=== PATIENT | male | born 1990 | race Caucasian/White ===

== ENCOUNTER 2019-09-30 13:49 | Emergency (ER) | payer SELFPAY ==
[2019-09-30 13:53] VITALS: BP 125/66; PULSE 72; RESP 16; TEMP 36.7; O2SAT 99; BMI 25.0
--- NOTE | 2019-09-30 14:08 | W.ED.SOB ---
Documented by User: CRISS Hawk 10/02/19 09:43 HPI - SOB/Dyspnea General: Chief Complaint: Shortness of Breath/Dyspnea Stated Complaint: SOB/ DARK GREEN DIARRHEA Time Seen by Provider: 09/30/19 13:55 History of Present Illness: HPI Narrative: Patient is a 28-year-old male who comes into the ED with diarrhea. Diarrhea started 4 days ago. He denies any blood in the stool. He has about 4 episodes of diarrhea a day for the past 4 days. When the diarrhea comes on he has abdominal pain and then it is relieved after he has bowel movement. Denies any nausea, vomiting, fever, shortness of breath, current abdominal pain, hematuria and dysuria.. Patient says he has been eating and drinking normally and staying hydrated. Associated symptoms: Deny abdominal pain, chest pain, fever(s), nausea, orthopnea, palpitations or vomiting Review of Systems Const: Denies: fever, chills or fatigue Eyes: Denies: change in vision or eye discomfort ENMT: Denies: throat pain, painful swallowing, nasal discharge or nasal congestion Card: Denies: chest pain, palpitations, edema, swelling of feet/ankles, shortness of breath on exertion or shortness of breath when lying down Resp: Denies: shortness of breath, productive cough or non-productive cough GI: Reports: diarrhea; Denies: abdominal pain, nausea, vomiting, constipation or blood in stool : Denies: flank pain, difficulty urinating, painful urination or blood in urine Musc: Denies: neck pain, back pain or extremity swelling Skin/Breast: Denies: rash or new lesion Neuro: Denies: headache, numbness in extremities or weakness in extremities PFS ED PFSH: Social History Smoking and tobacco status: current every day smoker Physical Exam Narrative: EXAM NARRATIVE: Patient is a 28-year-old male who is sitting comfortably on exam bed when I enter the room. He is showing no signs of acute distress or any acute pain. No signs of respiratory distress. Const: COMMON NORMALS: oriented x3 HENMT: COMMON NORMALS: normocephalic HEAD & SCALP: normocephalic MOUTH: oral and palatal mucosa normal THROAT: posterior oropharynx normal and uvula midline Neck/C-Spine: COMMON NORMALS: supple GENERAL: Yes normal visual inspection Resp: COMMON NORMALS: normal respiratory effort, no retractions, no use of accessory muscles and clear to auscultation bilaterally EFFORT & INSPECTION: Yes able to speak in complete sentences, No respiratory distress and No labored AUSCULTATION: clear to auscultation bilaterally Cardio: COMMON NORMALS: regular rate, regular rhythm, S1 normal heart sound, S2 normal heart sound, no gallops, no clicks, no murmurs and peripheral pulses 2+ throughout RATE: regular rate RHYTHM: regular rhythm HEART SOUNDS: S1 normal and S2 normal PERIPHERAL PULSES: pulses 2+ throughout GI: COMMON NORMALS: normal to inspection, nondistended, normoactive bowel sounds, soft to palpation and no masses PALPATION: Yes soft and Yes tender Details: LLQ (mild) : COMMON NORMALS: Yes no CVA tenderness BLADDER/KIDNEY EXAM: Yes no CVA tenderness Back/Pelvis: COMMON NORMALS: no CVA tenderness Extremity: COMMON NORMALS: normal to inspection and normal capillary refill Neuro: COMMON NORMALS: oriented x3 and moves all extremities Skin: COMMON NORMALS: no rashes or lesions noted GENERAL SKIN EXAM: no rashes or lesions noted and dry skin Course Vital Signs: Vital signs: Vital Signs Temperature 98.0 F 09/30/19 13:53 Pulse Rate 78 09/30/19 16:09 Respiratory Rate 18 09/30/19 16:09 Blood Pressure 118/62 09/30/19 16:09 Pulse Oximetry 99 09/30/19 16:09 MDM - SOB/Dyspnea Lab Data: Attestation: I reviewed the patient's lab results. Labs: Lab Results 09/30/19 09/30/19 Range/Units 14:50 14:50 WBC 6.4 (4.0-10.0) 10^3/ uL RBC 4.30 (4.1-5.3) 10^6/u L Hgb 13.0 (11.7-16.6) g/dL Hct 39.3 L (42.0-52.0) % MCV 91.4 (80-94) fL MCH 30.2 (28.0-34.0) pg MCHC 33.1 (30.0-36.0) g/dL RDW 11.8 L (12.1-15.1) % Plt Count 254 (130-400) 10^3/c mm MPV 10.1 (7.4-10.4) fL Neut % (Auto) 77.2 % Lymph % (Auto) 14.7 % [place] % (Auto) 6.4 % Eos % (Auto) 1.2 % Baso % (Auto) 0.3 % Neut # (Auto) 5.0 (1.8-7.7) 10^3/u L Lymph # (Auto) 0.9 (0.8-4.8) 10^3/u L [place] # (Auto) 0.4 (0.2-0.9) 10^3/u L Eos # (Auto) 0.1 (0.0-0.8) 10^3/u L Baso # (Auto) 0.0 (0.0-0.1) 10^3/u L Nucleated RBC % (a uto) 0 % Nucleated RBCs # 0.0 /100WBC Sodium 140 (136-145) mmol/L Potassium 4.2 (3.5-5.1) mmol/L Chloride 105 (98-107) mmol/L Carbon Dioxide 27 (22-29) mmol/L Anion Gap 12.2 (5-19) BUN 12 (6-20) mg/dL Creatinine 0.7 (0.7-1.2) mg/dL GFR Calculation 133.3 H (90-130) mL/min Glucose 108 (65-115) mg/dL Calculated Osmolal ity 287 (285-295) mOsm/k g Calcium 9.5 (8.5-10.5) mg/dL Total Bilirubin 0.4 (0.15-1.2) mg/dL AST 13 (0-40) U/L ALT 11 (0-41) U/L Alkaline Phosphata se 58 (40-130) IU/L Total Protein 6.5 L (6.6-8.7) g/dL Albumin 4.2 (3.5-5.2) g/dL Globulin 2.3 (1.3-4.6) g/dL Lipase 17 (13-60) U/L Discharge Plan Discharge Patient Disposition: Home, Self-Care Clinical Impression: Gastroenteritis, non-infectious Qualifiers: Noninfectious gastroenteritis type: unspecified Qualified Code(s): K52.9 - Noninfective gastroenteritis and colitis, unspecified Condition: Stable Prescriptions: New dicyclomine 20 mg tablet 20 mg PO TID 7 Days Qty: 21 RF: 0 No Action ibuprofen 200 mg Tablet 200 mg PO Q6H PRN (Reason: Pain) RF: 0 Discharge Orders: Discharge Order (Routine); Ordered 09/30/19 Ordered By: Diego High Discharge Diet: Regular Discharge Activity: Resume usual activity Patient Instructions: Gastroenteritis (ED) Activity Restrictions/Additional Instructions: Follow-up with your PCP in 7 days for reevaluation. Take the dicyclomine as prescribed as needed for any abdominal cramping and diarrhea. Drink plenty of fluids and stay hydrated. You take ibuprofen or Tylenol for any pain or fevers. Discharge Date/Time: 09/30/19 16:23 Coding Level of Care Code ED [employer] Operator for [employer] Fwd Exam Comprehensive Documented by User: Caesar Ponce DO 10/02/19 11:28 HPI - SOB/Dyspnea General: Chief Complaint: Shortness of Breath/Dyspnea Stated Complaint: SOB/ DARK GREEN DIARRHEA Time Seen by Provider: 09/30/19 13:55 PFSH ED PFSH: Social History Smoking and tobacco status: current every day smoker Course Vital Signs: Vital signs: Vital Signs Temperature 98.0 F 09/30/19 13:53 Pulse Rate 78 09/30/19 16:09 Respiratory Rate 18 09/30/19 16:09 Blood Pressure 118/62 09/30/19 16:09 Pulse Oximetry 99 09/30/19 16:09 MDM - SOB/Dyspnea MDM Narrative: Medical decision making narrative: Reviewed chart with PA agree with assessment plan. Lab Data: Labs: Lab Results 09/30/19 09/30/19 Range/Units 14:50 14:50 WBC 6.4 (4.0-10.0) 10^3/ uL RBC 4.30 (4.1-5.3) 10^6/u L Hgb 13.0 (11.7-16.6) g/dL Hct 39.3 L (42.0-52.0) % MCV 91.4 (80-94) fL MCH 30.2 (28.0-34.0) pg MCHC 33.1 (30.0-36.0) g/dL RDW 11.8 L (12.1-15.1) % Plt Count 254 (130-400) 10^3/c mm MPV 10.1 (7.4-10.4) fL Neut % (Auto) 77.2 % Lymph % (Auto) 14.7 % [place] % (Auto) 6.4 % Eos % (Auto) 1.2 % Baso % (Auto) 0.3 % Neut # (Auto) 5.0 (1.8-7.7) 10^3/u L Lymph # (Auto) 0.9 (0.8-4.8) 10^3/u L [place] # (Auto) 0.4 (0.2-0.9) 10^3/u L Eos # (Auto) 0.1 (0.0-0.8) 10^3/u L Baso # (Auto) 0.0 (0.0-0.1) 10^3/u L Nucleated RBC % (a uto) 0 % Nucleated RBCs # 0.0 /100WBC Sodium 140 (136-145) mmol/L Potassium 4.2 (3.5-5.1) mmol/L Chloride 105 (98-107) mmol/L Carbon Dioxide 27 (22-29) mmol/L Anion Gap 12.2 (5-19) BUN 12 (6-20) mg/dL Creatinine 0.7 (0.7-1.2) mg/dL GFR Calculation 133.3 H (90-130) mL/min Glucose 108 (65-115) mg/dL Calculated Osmolal ity 287 (285-295) mOsm/k g Calcium 9.5 (8.5-10.5) mg/dL Total Bilirubin 0.4 (0.15-1.2) mg/dL AST 13 (0-40) U/L ALT 11 (0-41) U/L Alkaline Phosphata se 58 (40-130) IU/L Total Protein 6.5 L (6.6-8.7) g/dL Albumin 4.2 (3.5-5.2) g/dL Globulin 2.3 (1.3-4.6) g/dL Lipase 17 (13-60) U/L Discharge Plan Discharge Patient Disposition: Home, Self-Care Clinical Impression: Gastroenteritis, non-infectious Qualifiers: Noninfectious gastroenteritis type: unspecified Qualified Code(s): K52.9 - Noninfective gastroenteritis and colitis, unspecified Condition: Stable Prescriptions: New dicyclomine 20 mg tablet 20 mg PO TID 7 Days Qty: 21 RF: 0 No Action ibuprofen 200 mg Tablet 200 mg PO Q6H PRN (Reason: Pain) RF: 0 Discharge Orders: Discharge Order (Routine); Ordered 09/30/19 Ordered By: Diego High Discharge Diet: Regular Discharge Activity: Resume usual activity Patient Instructions: Gastroenteritis (ED) Activity Restrictions/Additional Instructions: Follow-up with your PCP in 7 days for reevaluation. Take the dicyclomine as prescribed as needed for any abdominal cramping and diarrhea. Drink plenty of fluids and stay hydrated. You take ibuprofen or Tylenol for any pain or fevers. Discharge Date/Time: 09/30/19 16:23 Coding Level of Care Code ED [employer] Operator for Jalen Fwd Exam Comprehensive
[2019-09-30 14:56] LABS: Basophils % 0.3 %; Eosinophils # 0.1 10^3/uL (0.0-0.8); Eosinophils % 1.2 %; Hematocrit 39.3 % (42.0-52.0); Lymphocytes # 0.9 10^3/uL (0.8-4.8); Lymphocytes % 14.7 %; Mean Corpuscular HGB Conc 33.1 g/dL (30.0-36.0); Mean Corpuscular Hemoglobin 30.2 pg (28.0-34.0); Mean Corpuscular Volume 91.4 fL (80-94); Mean Platelet Volume 10.1 fL (7.4-10.4); Monocytes # 0.4 10^3/uL (0.2-0.9); Monocytes % 6.4 %; Neutrophils % 77.2 %; Nucleated Red Blood Cells % 0 %; Platelet Count 254 10^3/cmm (130-400); Red Cell Distribution Width 11.8 % (12.1-15.1); White Blood Count 6.4 10^3/uL (4.0-10.0)
[2019-09-30] MEDS: sodium chloride 0.9% 1,000 ML 999 ML IV (14:57)
[2019-09-30 15:09] LABS: Alanine Aminotransferase 11 U/L (0-41); Albumin Level 4.2 g/dL (3.5-5.2); Alkaline Phosphatase 58 IU/L (40-130); Anion Gap 12.2 (5-19); Aspartate Amino Transferase 13 U/L (0-40); Blood Urea Nitrogen 12 mg/dL (6-20); Calcium 9.5 mg/dL (8.5-10.5); Carbon Dioxide 27 mmol/L (22-29); Chloride 105 mmol/L (98-107); Creatinine Clr Calc Pharmacy 151.2815; Globulin 2.3 g/dL (1.3-4.6); Glomerular Filtration Rate 133.3 mL/min (90-130); Glucose 108 mg/dL (65-115); Lipase 17 U/L (13-60); Osmolality Calculated 287 mOsm/kg (285-295); Potassium 4.2 mmol/L (3.5-5.1); Sodium 140 mmol/L (136-145); Total Bilirubin 0.4 mg/dL (0.15-1.2); Total Protein 6.5 g/dL (6.6-8.7)
[2019-09-30] MEDS: dicyclomine 10 mg Capsule 20 MG PO (15:11)
[2019-09-30 16:09] VITALS: BP 118/62; PULSE 78; RESP 18; O2SAT 99
== END 2019-09-30 16:23 | disposition home or self-care (01) ==
PROVIDERS: Emergency Provider Physician Assistant
DX: K52.9 Noninfective gastroenteritis and colitis, unspecified (principal); F17.200 Nicotine dependence, unspecified, uncomplicated
CPT/HCPCS: 12345; 36415; 80053; 83690; 85025; 96360; 99281; 99283; J7030

== ENCOUNTER 2023-05-06 01:00 | Emergency (ER) | payer SELFPAY ==
[2023-05-06 01:00] VITALS: BP 134/97; PULSE 67; RESP 20; TEMP 36.7; O2SAT 100; BMI 21.2
--- NOTE | 2023-05-06 01:07 | CTR_ITS ---
PROCEDURE INFORMATION: Exam: CT Abdomen And Pelvis Without Contrast Exam date and time: 05/06/2023 1:36 AM Age: 32 years old Clinical indication: Abdominal pain; Flank; Right; Additional info: Flank pain TECHNIQUE: Imaging protocol: Computed tomography of the abdomen and pelvis without contrast. Radiation optimization: All CT scans at this facility use at least one of these dose optimization techniques: automated exposure control; mA and/or kV adjustment per patient size (includes targeted exams where dose is matched to clinical indication); or iterative reconstruction. REPORTING DATA: Count of CT and Cardiac NM exams in prior 12 months: This patient has received 0 known CTs and 0 known cardiac nuclear medicine studies in the 12 months prior to the current study. COMPARISON: CR XR chest 2V* [id number] 01/17/2017 3:15 PM RADIATION DOSE METRICS: Total DLP (mGy-cm): 337.92 FINDINGS: Liver: Normal. No mass. Gallbladder and bile ducts: Normal. No calcified stones. No ductal dilation. Pancreas: Normal. No ductal dilation. Spleen: Normal. No splenomegaly. Adrenal glands: Normal. No mass. Kidneys and ureters: See Urinary bladder finding. Stomach and bowel: Unremarkable. No obstruction. No mucosal thickening. Appendix: No evidence of appendicitis. Intraperitoneal space: Unremarkable. No free air. No significant fluid collection. Vasculature: Unremarkable. No abdominal aortic aneurysm. Lymph nodes: Unremarkable. No enlarged lymph nodes. Urinary bladder: There is a 3 mm stone in the right posterior aspect bladder mild right-sided hydroureter hydro nephrosis consistent with the recent traverse stone. Reproductive: Unremarkable as visualized. Bones/joints: Unremarkable. No acute fracture. Soft tissues: Unremarkable. CT/CT kidney stone [id number] IMPRESSION: There is a 3 mm stone in the right posterior aspect bladder mild right-sided hydroureter hydro nephrosis consistent with the recent traverse stone.
--- NOTE | 2023-05-06 01:11 | W.ED.ABDPA2 ---
HPI - Abdominal Pain General: Chief Complaint: Abdominal Pain Stated Complaint: R back Pain/ Genital Pain Time Seen by Provider: 05/06/23 01:06 Source: patient Mode of arrival: ambulatory Limitations: no limitations History of Present Illness: 32-year-old male states he had a sudden onset of right flank pain roughly an hour ago. States pain is severe in nature sharp rates it a 9 out of 10 he has had some nausea denies any vomiting the pain radiates to his testicle denies any history of kidney stones. Denies any dysuria. Associated Symptoms: Reports nausea; Denies chills, diarrhea, dysuria, fever(s) and vomiting Review of Systems Const: Denies: fever(s), chills, body aches or change in appetite Eyes: Denies: blurry vision or eye discomfort ENMT: Denies: throat pain or dental pain Card: Denies: chest pain Resp: Denies: dyspnea GI: Reports: abdominal pain and nausea; Denies: vomiting or diarrhea : Reports: flank pain; Denies: dysuria Musc: Denies: neck pain or back pain Skin/Breast: Denies: rash Neuro: Denies: headache(s) PFSH ED PFSH: Social History Smoking and tobacco/nicotine status: current every day tobacco/nicotine user Physical Exam Const: COMMON NORMALS: no acute distress, patient oriented x3 and healthy appearing HENMT: COMMON NORMALS: normocephalic and atraumatic HEAD & SCALP: normocephalic and atraumatic Neck/C-Spine: COMMON NORMALS: full ROM and supple Chest: COMMONS NORMALS: normal inspection of the chest Resp: COMMON NORMALS: normal respiratory effort Cardio: COMMON NORMALS: regular rate, regular rhythm and No murmurs present (Cardio) RATE: regular rate RHYTHM: regular rhythm GI: COMMON NORMALS: Normal to inspection, nondistended, normoactive bowel sounds present, Soft to palpation, non-tender and no masses PALPATION: Yes Soft to palpation Extremity: COMMON NORMALS: normal to inspection and full ROM Neuro: COMMON NORMALS: patient oriented x3, moves all extremities and no focal motor deficits Psych: COMMON NORMALS: mental status grossly normal, Normal thought process present and cooperative THOUGHT PROCESS: Normal thought process present Skin: COMMON NORMALS: no rashes or lesions noted and no wounds GENERAL SKIN EXAM: no rashes or lesions noted Course Vital Signs: Vital signs: Vital Signs Temperature 98.0 F 05/06/23 01:00 Pulse Rate 60 05/06/23 02:35 Respiratory Rate 18 05/06/23 02:35 Blood Pressure 139/82 05/06/23 02:35 Pulse Oximetry 94 05/06/23 02:35 Oxygen Delivery Me thod Room Air 05/06/23 01:00 MDM - Abdominal Pain Medical Decision Making Patient presents here with kidney stone his pain is much improved he has no signs of infection he is stable for discharge we will place him on pain meds nausea medicine he is to follow-up with urology. Medical Records I reviewed the patient's medical records. Lab Data I reviewed the patient's lab results. 05/06/23 00:23 05/06/23 00:23 Labs/Radiology: Radiology Impressions Abdomen/Pelvis CT 05/06/23 01:07 IMPRESSION: There is a 3 mm stone in the right posterior aspect bladder mild right-sided hydroureter hydro nephrosis consistent with the recent traverse stone. Laboratory Results WBC 10.98 10^3/uL (3.29-11.43) 05/06/23 00:23 RBC 4.61 10^6/uL (3.85-5.65) 05/06/23 00:23 Hgb 14.20 g/dL (11.27-16.99) 05/06/23 00:23 Hct 40.8 % (37-53) 05/06/23 00:23 MCV 88.5 fl (82-101) 05/06/23 00:23 MCH 30.8 pg (27-33) 05/06/23 00:23 MCHC 34.8 g/dL (30-55) 05/06/23 00:23 RDW 12.4 % (12.1-15.1) 05/06/23 00:23 Plt Count 312 10^3/cmm (157-399) 05/06/23 00:23 MPV 10.4 fL (7.4-10.4) 05/06/23 00:23 Neut % (Auto) 74.0 % 05/06/23 00:23 Lymph % (Auto) 15.1 % 05/06/23 00:23 [place] % (Auto) 8.0 % 05/06/23 00:23 Eos % (Auto) 2.0 % 05/06/23 00:23 Baso % (Auto) 0.6 % 05/06/23 00:23 Neut # (Auto) 8.12 10^3/uL (1.8-7.7) H 05/06/23 00:23 Lymph # (Auto) 1.7 10^3/uL (0.8-4.8) 05/06/23 00:23 [place] # (Auto) 0.9 10^3/uL (0.2-0.9) 05/06/23 00:23 Eos # (Auto) 0.2 10^3/uL (0.0-0.8) 05/06/23 00:23 Baso # (Auto) 0.1 10^3/uL (0.0-0.1) 05/06/23 00:23 Nucleated RBC % (auto) 0 % 05/06/23 00:23 Nucleated RBCs # 0.0 /100WBC 05/06/23 00:23 Sodium 139 mmol/L (136-145) 05/06/23 00:23 Potassium 3.0 mmol/L (3.5-5.1) L 05/06/23 00:23 Chloride 100 mmol/L (98-107) 05/06/23 00:23 Carbon Dioxide 24 mmol/L (22-29) 05/06/23 00:23 Anion Gap 18.0 (5-19) 05/06/23 00:23 BUN 27 mg/dL (6-20) H 05/06/23 00:23 Creatinine 0.9 mg/dL (0.7-1.2) 05/06/23 00:23 GFR Calculation 97.2 mL/min (90-130) 05/06/23 00:23 Glucose 101 mg/dL (65-115) 05/06/23 00:23 Calculated Osmolality 293 mOsm/kg (285-295) 05/06/23 00:23 Calcium 10.1 mg/dL (8.5-10.5) 05/06/23 00:23 Total Bilirubin 0.6 mg/dL (0.15-1.2) 05/06/23 00:23 AST 21 U/L (0-40) 05/06/23 00:23 ALT 17 U/L (0-41) 05/06/23 00:23 Alkaline Phosphatase 59 U/L (40-130) 05/06/23 00:23 Total Protein 7.5 g/dL (6.6-8.7) 05/06/23 00:23 Albumin 4.8 g/dL (3.5-5.2) 05/06/23 00:23 Globulin 2.7 g/dL (1.3-4.6) 05/06/23 00:23 Lipase 18 U/L (13-60) 05/06/23 00:23 Urine Color Yellow (Yellow) 05/06/23 02:12 Urine Appearance Sl hazy (CLEAR) A 05/06/23 02:12 Urine pH 9 (5-7) H 05/06/23 02:12 Ur Specific [place] 1.015 (1.005-1.030) 05/06/23 02:12 Urine Protein Neg (Negative) 05/06/23 02:12 Urine Glucose (UA) Norm (Normal) 05/06/23 02:12 Urine Ketones 1+ (Negative) H 05/06/23 02:12 Urine Blood 3+ (Negative) H 05/06/23 02:12 Urine Nitrate Negative (Negative) 05/06/23 02:12 Urine Bilirubin Neg (Negative) 05/06/23 02:12 Prot Sulfosalicylic Acd Negative (Negative) 05/06/23 02:12 Urine Urobilinogen Neg mg/dL (Negative) 05/06/23 02:12 Ur Leukocyte Esterase Negative (Negative) 05/06/23 02:12 Urine RBC 5-10 /hpf (0-2) H 05/06/23 02:12 Urine WBC None /hpf (0-5) 05/06/23 02:12 Ur Squamous Epith Cells None /hpf (0-5) 05/06/23 02:12 Amorphous Sediment 2+ /hpf 05/06/23 02:12 Urine Bacteria 1+ /hpf (NONE) H 05/06/23 02:12 Urine Mucus 1+ /hpf 05/06/23 02:12 All radiology interpretation(s) finalized by discharge Discharge Plan Discharge Patient Disposition: Home Clinical Impression: Kidney stone Condition: Stable Prescriptions: New hydrocodone-acetaminophen 5-325 mg tablet 1 tab PO Q6H PRN (Reason: pain) Qty: 14 0RF ondansetron 4 mg tablet,disintegrating 4 mg PO Q6H PRN (Reason: nausea and vomiting) Qty: 14 0RF No Action ibuprofen 200 mg Tablet 200 mg PO Q6H PRN (Reason: Pain) Discharge Orders: Discharge ED (Routine); Ordered 05/06/23 Ordered By: Andra Henderson Discharge Diet: Advance as tolerated Discharge Activity: Resume usual activity Patient Instructions: Kidney Stones (ED), Opioid Safety Coding Level of Care Code ED [employer] Director for Jalen Evans
[2023-05-06 01:12] LABS: Basophils # 0.1 10^3/uL (0.0-0.1); Basophils % 0.6 %; Eosinophils # 0.2 10^3/uL (0.0-0.8); Hematocrit 40.8 % (37-53); Lymphocytes # 1.7 10^3/uL (0.8-4.8); Lymphocytes % 15.1 %; Mean Corpuscular HGB Conc 34.8 g/dL (30-55); Mean Corpuscular Hemoglobin 30.8 pg (27-33); Mean Corpuscular Volume 88.5 fl (82-101); Mean Platelet Volume 10.4 fL (7.4-10.4); Monocytes # 0.9 10^3/uL (0.2-0.9); Neutrophils # 8.12 10^3/uL (1.8-7.7); Nucleated Red Blood Cells % 0 %; Platelet Count 312 10^3/cmm (157-399); Red Blood Count 4.61 10^6/uL (3.85-5.65); Red Cell Distribution Width 12.4 % (12.1-15.1); White Blood Count 10.98 10^3/uL (3.29-11.43)
[2023-05-06] MEDS: ondansetron 2 mg/ML SDV 2 mL 4 MG IVP (01:12)
[2023-05-06] MEDS: HYDROmorphone 1 mg/mL INJ 1 mL IVP (01:12)
[2023-05-06] MEDS: sodium chloride 0.9% 1,000 ML 999 ML IV (01:12)
[2023-05-06 01:33] LABS: Alanine Aminotransferase 17 U/L (0-41); Albumin Level 4.8 g/dL (3.5-5.2); Alkaline Phosphatase 59 U/L (40-130); Aspartate Amino Transferase 21 U/L (0-40); Blood Urea Nitrogen 27 mg/dL (6-20); Calcium 10.1 mg/dL (8.5-10.5); Carbon Dioxide 24 mmol/L (22-29); Chloride 100 mmol/L (98-107); Globulin 2.7 g/dL (1.3-4.6); Glomerular Filtration Rate 97.2 mL/min (90-130); Glucose 101 mg/dL (65-115); Lipase 18 U/L (13-60); Osmolality Calculated 293 mOsm/kg (285-295); Sodium 139 mmol/L (136-145); Total Bilirubin 0.6 mg/dL (0.15-1.2); Total Protein 7.5 g/dL (6.6-8.7)
[2023-05-06] MEDS: ketorolac 30 mg/mL INJ IVP (02:23)
[2023-05-06 02:35] VITALS: BP 139/82; PULSE 60; RESP 18; O2SAT 94
[2023-05-06 02:41] LABS: Add Urine Microscopic? YES; Amorphous Sediment Urine 2+ /hpf; Bacteria Urine 1+ /hpf; Bilirubin Urine Neg (Negative); Blood Urine 3+ (Negative); Glucose Urine UA Norm (Normal); Ketones Urine 1+ (Negative); Leukocyte Esterase Urine Negative (Negative); Mucus Urine 1+ /hpf; Nitrate Urine Negative (Negative); Protein Urine Neg (Negative); Specific Gravity, Urine 1.015 (1.005-1.030); Sulfosalicylic Acid Urine Negative (Negative); Urine Appearance SL Hazy (CLEAR); Urine Color Yellow (Yellow); Urobilinogen Urine Neg (Negative); pH Urine 9 (5-7)
[2023-05-06 02:42] LABS: Add Urine Culture? No
[2023-05-06 03:10] VITALS: BP 139/82; PULSE 60; RESP 18; TEMP 36.7; O2SAT 94
--- NOTE | 2023-05-12 14:03 | DCPLANNER ---
I was able to fax order and patient chart to [facility] Urology clinic on 05/12/23 at 1402. Fax number is [phone]. Phone number is [phone]./ Clinic to contact patient with an appointment.
== END 2023-05-06 03:11 | disposition home or self-care (01) ==
PROVIDERS: Emergency Provider Emergency Medicine
DX: N21.0 Calculus in bladder (principal); N13.30 Unspecified hydronephrosis; Z72.0 Tobacco use
CPT/HCPCS: 74176; 80053; 81001; 83690; 85025; 96361; 96374; 96375; 99285; J1170; J1885; J2405; J7030

== ENCOUNTER 2023-08-31 20:18 | Emergency (ER) | payer SELFPAY ==
[2023-08-31 20:58] VITALS: BP 140/79; PULSE 90; RESP 18; TEMP 36.4; O2SAT 99; BMI 22.1
[2023-08-31 21:10] VITALS: BP 137/77; PULSE 93; RESP 18; O2SAT 99
[2023-08-31] MEDS: fluorescein 1 mg Strip EYE-BOTH (21:11)
--- NOTE | 2023-08-31 21:11 | W.ED.EYEPROB ---
HPI - Eye Problem General: Chief complaint: Eye Problems Stated complaint: right eye pain, possible metal in eye Time Seen by Provider: 08/31/23 20:28 Source: patient Mode of arrival: ambulatory Limitations: no limitations History of Present Illness: 32-year-old male states that he was grinding metal roughly an hour ago he states he was not wearing any safety eyewear and feels like he has something in his right eye does have pain he states its improved a little over the last 30 minutes rates the pain a 3 out of 10 denies any vision changes. Associated symptoms: Denies fever(s), headache(s), nausea, neck pain or vomiting Review of Systems Const: Denies: fever(s) or chills Eyes: Reports: eye discomfort ENMT: Denies: throat pain or dental pain Card: Denies: chest pain Resp: Denies: dyspnea GI: Denies: abdominal pain, nausea, vomiting or diarrhea Musc: Denies: neck pain or back pain Skin/Breast: Denies: rash Neuro: Denies: headache(s) PFSH ED PFSH: Social History Smoking and tobacco/nicotine status: current every day tobacco/nicotine user Physical Exam Const: COMMON NORMALS: no acute distress and patient oriented x3 HENMT: COMMON NORMALS: normocephalic and atraumatic HEAD & SCALP: normocephalic and atraumatic Eye: OTHER: No foreign body noted to right eye he does have a very small abrasion in the center of his cornea under fluorescein stain Chest: COMMONS NORMALS: normal inspection of the chest Resp: COMMON NORMALS: normal respiratory effort GI: INSPECTION: Yes normal to inspection Extremity: COMMON NORMALS: normal to inspection Neuro: COMMON NORMALS: patient oriented x3 Psych: COMMON NORMALS: mental status grossly normal Course Vital Signs: Vital signs: Vital Signs Temperature 97.5 F L 08/31/23 20:58 Pulse Rate 93 08/31/23 21:10 Respiratory Rate 18 08/31/23 21:10 Blood Pressure 137/77 08/31/23 21:10 Pulse Oximetry 99 08/31/23 21:10 MDM - Eye Problem Medical Decision Making Patient presents for corneal abrasion to right eye no signs of any foreign body no signs of metal in his eye or respiratory we will place him on erythromycin ointment he stable for discharge follow-up PCP return if worsening Medical Records I reviewed the patient's medical records. No radiology studies performed this visit Discharge Plan Discharge Patient Disposition: Home Clinical Impression: Corneal abrasion Qualifiers: Encounter type: initial encounter Laterality: right Qualified Code(s): S05.01XA - Injury of conjunctiva and corneal abrasion without foreign body, right eye, initial encounter Condition: Stable Prescriptions: New erythromycin 5 mg/gram (0.5 %) ointment 1 applic ophthalmic (eye) TID 5 Days Qty: 3.5 0RF No Action ibuprofen 200 mg Tablet 200 mg PO Q6H PRN (Reason: Pain) hydrocodone-acetaminophen 5-325 mg tablet 1 tab PO Q6H PRN (Reason: pain) Qty: 14 0RF ondansetron 4 mg tablet,disintegrating 4 mg PO Q6H PRN (Reason: nausea and vomiting) Qty: 14 0RF Discharge Orders: Discharge ED (Routine); Ordered 08/31/23 Ordered By: Andra Henderson Discharge Diet: Advance as tolerated Discharge Activity: Resume usual activity Patient Instructions: Corneal Abrasion (ED) Coding Level of Care Code ED Employee Benefits Manager for Jalen Evans
[2023-08-31] MEDS: tetracaine 0.5% Op Soln 4 mL Btl 1 DROP EYE-BOTH (21:12)
== END 2023-08-31 21:54 | disposition home or self-care (01) ==
PROVIDERS: Emergency Provider Emergency Medicine
DX: S05.01XA Injury of conjunctiva and corneal abrasion without foreign body, right eye, initial encounter (principal); Z72.0 Tobacco use; X58.XXXA Exposure to other specified factors, initial encounter
CPT/HCPCS: 99283

== ENCOUNTER 2025-02-11 12:04 | Emergency (ER) | payer MEDICAID, SELFPAY ==
[2025-02-11 12:07] VITALS: BP 112/64; PULSE 68; RESP 16; TEMP 36.7; O2SAT 99; BMI 20.7
[2025-02-11 12:28] VITALS: BP 105/70; O2SAT 97
--- NOTE | 2025-02-11 12:45 | ED_ITS ---
HPI - Abdominal Pain 2 General: Chief Complaint: Abdominal Pain Stated Complaint: abd pain Time Seen by Provider: 02/11/25 12:25 Source: patient Mode of arrival: ambulatory Limitations: no limitations History of Present Illness: Patient is a 34-year-old male presents to ED today with a complaint of epigastric pain. He states pain has been present over the past several days. He states yesterday he got a piece of beef roast stuck in his throat. He states he tried to vomit several times and attempts to get it up. He states he then took a shot of Fireball which made him gag and he was able to expel the food. Patient states he did vomit several times and noticed a small amount of blood in one of the episodes of emesis. He has not since had any further episodes. He feels like since then his epigastric pain is worse. He does drink alcohol daily-reporting approximately 2 shots of hard alcohol nightly to help him relax. Denies anti-inflammatory use. He is not having any dark or tarry stools. Patient does have a history of Crohn's disease. States he lost insurance a while back and no longer has a specialist that he follows up with for this. MD elicited complaint: abdominal pain Pertinent past history: other (Crohn's disease) Onset (ago): day(s) Pain Consistency: constant Location: Epigastric Severity: moderate Pain scale (0-10): 5 Radiation: none Migration to: no migration Exacerbating factors: nothing Relieving factors: nothing Associated Symptoms: Reports vomiting (Intentionally made himself vomit yesterday to expel food bolus); Denies chills, constipation, diarrhea, dysuria, fever(s), hematochezia, hematuria, melena and nausea Related Data Home Medications ?Medication ?Instructions ?Recorded ?Confirmed ibuprofen 200 mg tablet 200 mg PO Q6H PRN Pain 09/2909/30/19 Previous Rx's ?Medication ?Instructions ?Recorded hydrocodone 5 mg-acetaminophen 325 1 tab PO Q6H PRN pa in #14 tabs 05/06/23 mg tablet ondansetron 4 mg disintegrating 4 mg PO Q6H PRN nausea and 05/06/23 tablet vomiting #14 tabs pantoprazole 40 mg tablet,delayed 40 mg PO DAILY 14 da ys #14 tabs 08/11/25 release (Protonix) sucralfate 1 gram tablet (Carafate) 1 g PO TID 2 weeks #42 tabs 02/11/25 Allergies Allergy/AdvReac Type Severity Reaction Status Date / Time No Known Allergies Allergy Verified 02/11/25 12:11 Review of Systems 2 Const: Denies: fever(s), chills, body aches, fatigue or malaise Card: Denies: chest pain Resp: Denies: dyspnea GI: Reports: abdominal pain and vomiting (Intentionally made himself vomit yesterday to expel food bolus); Denies: nausea, diarrhea, constipation, hematochezia or melena : Denies: flank pain, dysuria, hematuria or genital lesions Musc: Denies: neck pain, back pain, extremity pain, extremity swelling, joint pain, joint swelling or joint redness Skin/Breast: Denies: rash Neuro: Denies: headache(s), numbness in extremities, weakness in extremities, sensory changes or dizziness PFSH ED 2 PFSH: Social History Smoking and tobacco/nicotine status: current every day tobacco/nicotine user Physical Exam 2 Const: COMMON NORMALS: no acute distress, average body habitus, patient oriented x3, no limitations, healthy appearing, alert and well nourished G ENERAL APPEARANCE: cooperative Eye: COMMON NORMALS: no scleral icterus Resp: COMMON NORMALS: normal respiratory effort and clear to auscultation bilaterally AUSCULTATION: clear to auscultation bilaterally Cardio: COMMON NORMALS: regular rate and regular rhythm RATE: regular rate RHYTHM: regular rhythm GI: COMMON NORMALS: Normal to inspection, nondistended, normoactive bowel sounds present, Soft to palpation, No hepatosplenomegaly present and no masses INSPECTION: Yes normal to inspection AUSCULTATION: Yes normoactive bowel sounds PALPATION: Yes Soft to palpation, Yes Tenderness to palpation present (GI) (max tenderness epigastric-non surgical examination), No Guarding due to palpation present (GI), No Rigid due to palpation and Yes No hepatosplenomegaly present : COMMON NORMALS: Yes no CVA tenderness BLADDER/KIDNEY EXAM: Yes no CVA tenderness Back/Pelvis: COMMON NORMALS: no CVA tenderness Neuro: COMMON NORMALS: patient oriented x3 SENSORIUM/ORIENTATION: Yes alert Course 2 Vital Signs: Vital signs: Vital Signs Temperature 98.1 F 02/11/25 12:07 Pulse Rate 68 02/11/25 12:07 Respiratory Rate 16 02/11/25 12:07 Blood Pressure 110/73 02/11/25 12:58 Pulse Oximetry 97 02/11/25 12:58 Oxygen Delivery Me thod Room Air 02/11/25 12:07 MDM - Abdominal Pain Medical Decision Making Patient clinically appears in no acute distress. Vital signs are stable. Abdomen is nonsurgical clinically. Blood work overall is unremarkable. He has a normal white count and normal chemistry. UA does not appear infected. Patient was able to eat and drink here without difficulty. He was administered a GI cocktail and states this helped with his discomfort. At this time, I feel symptoms most likely are secondary to a gastritis. Will place him on a PPI/Carafate over the next 2 weeks and recommend he follow-up with primary care provider. Case management referral placed for this. DDx includes: Crohn's flare, pancreatitis, Kellee-Pagan tear, Boerhaave Syndrome. Differential Diagnosis Likely abdominal pain Medical Records I reviewed the patient's medical records. Lab Data I reviewed the patient's lab results. 02/11/25 13:02 02/11/25 13:02 Labs/Radiology: Laboratory Results WBC 6.02 10^3/uL (3.29-11.43) 02/11/25 13:02 RBC 4.37 10^6/uL (3.85-5.65) 02/11/25 13:02 Hgb 13.70 g/dL (11.27-16.99) 02/11/25 13:02 Hct 40.2 % (37-53) 02/11/25 13:02 MCV 92.0 fl (82-101) 02/11/25 13:02 MCH 31.4 pg (27-33) 02/11/25 13:02 MCHC 34.1 g/dL (30-55) 02/11/25 13:02 RDW 13.1 % (12.1-15.1) 02/11/25 13:02 Plt Count 205 10^3/cmm (157-399) 02/11/25 13:02 MPV 9.9 fL (7.4-10.4) 02/11/25 13:02 Neut % (Auto) 61.1 % 02/11/25 13:02 Lymph % (Auto) 22.4 % 02/11/25 13:02 Barton % (Auto) 10.3 % 02/11/25 13:02 Eos % (Auto) 5.5 % 02/11/25 13:02 Baso % (Auto) 0.5 % 02/11/25 13:02 Neut # (Auto) 3.68 10^3/uL (1.8-7.7) 02/11/25 13:02 Lymph # (Auto) 1.4 10^3/uL (0.8-4.8) 02/11/25 13:02 Barton # (Auto) 0.6 10^3/uL (0.2-0.9) 02/11/25 13:02 Eos # (Auto) 0.3 10^3/uL (0.0-0.8) 02/11/25 13:02 Baso # (Auto) 0.0 10^3/uL (0.0-0.1) 02/11/25 13:02 Nucleated RBC % (auto) 0 % 02/11/25 13:02 Nucleated RBCs # 0.0 /100WBC 02/11/25 13:02 Sodium 138 mmol/L (136-145) 02/11/25 13:02 Potassium 3.7 mmol/L (3.5-5.1) 02/11/25 13:02 Chloride 102 mmol/L (98-107) 02/11/25 13:02 Carbon Dioxide 25 mmol/L (22-29) 02/11/25 13:02 Anion Gap 14.7 (5-19) 02/11/25 13:02 BUN 17 mg/dL (6-20) 02/11/25 13:02 Creatinine 0.6 mg/dL (0.7-1.2) L 02/11/25 13:02 GFR Calculation 153.3 mL/min (90-130) H 02/11/25 13:02 Glucose 83 mg/dL (65-115) 02/11/25 13:02 Calculated Osmolality 287 mOsm/kg (285-295) 02/11/25 13:02 Calcium 8.8 mg/dL (8.5-10.5) 02/11/25 13:02 Total Bilirubin 0.4 mg/dL (0.15-1.2) 02/11/25 13:02 AST 19 U/L (0-40) 02/11/25 13:02 ALT 10 U/L (0-41) 02/11/25 13:02 Alkaline Phosphatase 55 U/L (40-130) 02/11/25 13:02 Total Protein 6.5 g/dL (6.6-8.7) L 02/11/25 13:02 Albumin 4.0 g/dL (3.5-5.2) 02/11/25 13:02 Globulin 2.5 g/dL (1.3-4.6) 02/11/25 13:02 Lipase 14 U/L (13-60) 02/11/25 13:02 Urine Color Yellow (Yellow) 02/11/25 13:31 Urine Appearance Clear (CLEAR) 02/11/25 13:31 Urine pH 6.0 (5-7) 02/11/25 13:31 Ur Specific [place] 1.027 (1.005-1.030) 02/11/25 13:31 Urine Protein 1+ (Negative) A 02/11/25 13:31 Urine Glucose (UA) Negative (Normal) 02/11/25 13:31 Urine Ketones 2+ (Negative) H 02/11/25 13:31 Urine Blood Negative (Negative) 02/11/25 13:31 Urine Nitrate Negative (Negative) 02/11/25 13:31 Urine Bilirubin Negative (Negative) 02/11/25 13:31 Urine Urobilinogen 1.0 mg/dL (Negative) 02/11/25 13:31 Ur Leukocyte Esterase Negative (Negative) 02/11/25 13:31 Amorphous Sediment Not Reportable 02/11/25 13:31 No radiology studies performed this visit Discharge Plan Discharge Patient Disposition: Home Clinical Impression: Gastritis Qualifiers: Gastritis type: unspecified gastritis Chronicity: acute Gastritis bleeding: w ithout bleeding Qualified Code(s): K29.00 - Acute gastritis without bleeding Condition: Stable Prescriptions: New sucralfate [Carafate] 1 gram tablet 1 g PO TID 14 Days Qty: 42 0RF pantoprazole [Protonix] 40 mg tablet,delayed release (DR/EC) 40 mg PO DAILY 14 Days Qty: 14 0RF No Action ibuprofen 200 mg Tablet 200 mg PO Q6H PRN (Reason: Pain) hydrocodone-acetaminophen 5-325 mg tablet 1 tab PO Q6H PRN (Reason: pain) Qty: 14 0RF ondansetron 4 mg tablet,disintegrating 4 mg PO Q6H PRN (Reason: nausea and vomiting) Qty: 14 0RF Discharge Orders: Discharge ED (Routine); Ordered 02/11/25 Ordered By: Rizwana Castro Patient Instructions: Patient Portal & Tejinder Instructions Activity Restrictions/Additional Instructions: As we discussed, I will place you on 2 different medications to help with your epigastric discomfort. Please avoid aggravating factors such as anti- inflammatories, alcohol, spicy, or acidic foods. Case management should contact you to help set you up with your follow-up appointment with primary care. You may return to the emergency department for onset of severe abdominal pain, frequent episodes of bloody vomit, dark or tarry stools, fevers, generally feeling worse, or any other concerns you may have. Stand Alone Forms: Work/School Release Print Language: [place] Coding Level of Care Code ED Ultra [employer] Technician for Jalen Evans
[2025-02-11 12:58] VITALS: BP 110/73; O2SAT 97
[2025-02-11 13:06] LABS: Hematocrit 40.2 % (37-53); Hemoglobin 13.70 g/dL (11.27-16.99); Mean Corpuscular HGB Conc 34.1 g/dL (30-55); Mean Corpuscular Hemoglobin 31.4 pg (27-33); Mean Corpuscular Volume 92.0 fl (82-101); Nucleated Red Blood Cells % 0 %; Platelet Count 205 10^3/cmm (157-399); Red Blood Count 4.37 10^6/uL (3.85-5.65); White Blood Count 6.02 10^3/uL (3.29-11.43)
[2025-02-11] MEDS: lidocaine 2% viscous 15 ML, aluminum-mag hydrox-simethicon 30 ML, sucralfate oral liq 1 GM PO (13:11)
[2025-02-11 13:23] LABS: Alanine Aminotransferase 10 U/L (0-41); Albumin Level 4.0 g/dL (3.5-5.2); Alkaline Phosphatase 55 U/L (40-130); Anion Gap 14.7 (5-19); Aspartate Amino Transferase 19 U/L (0-40); Blood Urea Nitrogen 17 mg/dL (6-20); Calcium 8.8 mg/dL (8.5-10.5); Carbon Dioxide 25 mmol/L (22-29); Chloride 102 mmol/L (98-107); Creatinine Clr Calc Pharmacy 164.8432; Globulin 2.5 g/dL (1.3-4.6); Glucose 83 mg/dL (65-115); Lipase 14 U/L (13-60); Osmolality Calculated 287 mOsm/kg (285-295); Potassium 3.7 mmol/L (3.5-5.1); Sodium 138 mmol/L (136-145); Total Protein 6.5 g/dL (6.6-8.7)
[2025-02-11 13:44] LABS: Glucose Urine UA Negative (Normal); Nitrate Urine Negative (Negative); Specific Gravity, Urine 1.027 (1.005-1.030)
[2025-02-11 13:50] LABS: Add Urine Microscopic? YES; Universal Test for UA Present (0)
[2025-02-11 13:55] VITALS: BP 122/79; PULSE 77; O2SAT 99
--- NOTE | 2025-02-11 14:11 | DCPLANNER ---
messaged [facility] to establish pcp
[2025-02-11 14:19] LABS: UA Slide Review UA Slide Review Perf
--- OUTSIDE RECORDS SUMMARY | 2025-02-13 10:18 | XMS_ITS | Patient Health Record ---
Author Organization [facility] Address [address] [place] [address] Care Team Providers Care Manager Casino Name Role Phone Zana Zavaleta Unavailable [phone] Reason For Referral No Information Problems Problem Type SNOMED Code ICD Code Onset Dates Problem Status W/U Status Risk Notes Problem Thoracic back pain (638312312) Upper back pain (724.5) 11/14/19 10 Active confirmed [id number] 11- Problem Cough (05491705) Cough (786.2) 04/13/20 04 Problem resolved confirmed [id number] 11- Problem Loss of hair (586047689) Loss of hair (704.00) 09/20/19 08 Problem resolved confirmed [id number]- Problem Acute appendicitis (09856737) Acute appendicitis (540.9) 04/13/20 04 Problem resolved confirmed [id number]- Problem Generalized abdominal pain (401112651) Generalized abdominal pain (789.07) 05/14/20 04 Problem resolved confirmed [id number]- Problem Cystic acne (42253994) Cystic acne (706.1) 09/20/19 08 Problem resolved confirmed [id number]- Problem Acne vulgaris (82856840) Acne vulgaris (706.1) 05/14/20 04 Problem resolved confirmed [id number]- Plan Of Treatment No Information Medical (General) History Surgical History Surgery Date(Month/Year) NONE
== END 2025-02-11 13:57 | disposition home or self-care (01) ==
PROVIDERS: Emergency Provider Physician Assistant
DX: K29.00 Acute gastritis without bleeding (principal); Z72.0 Tobacco use
CPT/HCPCS: 36415; 80053; 81001; 83690; 85025; 99283; J9999